=== PATIENT | male | born 2000 | race African-American/Black ===

== ENCOUNTER 2021-08-13 16:22 | Emergency (ER) | payer OTHER, SELFPAY ==
[2021-08-13 16:38] VITALS: BP 169/76; PULSE 56; RESP 16; TEMP 36.6; O2SAT 100
--- NOTE | 2021-08-13 20:53 | W.ED.NAVMDI ---
Documented by User: [email or web address] Lopez 08/13/21 21:13 HPI - Nausea/Vomiting/Diarrhea General: Chief complaint: Nausea/Vomiting/Diarrhea Stated complaint: Pt states they are coming in for [facility] Time Seen by Provider: 08/13/21 20:51 History of Present Illness: 20-year-old male patient comes in today for complaints of nausea and vomiting after the use of cannabis. Patient reports an episode of hyperemesis secondary to cannabinoid use in the past. Patient states he has avoided the use of cannabis since that episode but had used some today and started having symptoms similar to his previous episode. Patient denies any other chronic medical problems. Patient denies any routine medications. Associated nausea: Yes Associated symtoms: Reports nausea Review of Systems GI: Reports: nausea and vomiting Physical Exam Const: COMMON NORMALS: alert HENMT: COMMON NORMALS: atraumatic HEAD & SCALP: atraumatic THROAT: posterior oropharynx normal Resp: COMMON NORMALS: normal respiratory effort and clear to auscultation bilaterally AUSCULTATION: clear to auscultation bilaterally Cardio: COMMON NORMALS: regular rate and regular rhythm RATE: regular rate RHYTHM: regular rhythm GI: COMMON NORMALS: Soft to palpation and non-tender AUSCULTATION: Yes normoactive bowel sounds PALPATION: Yes Soft to palpation Extremity: COMMON NORMALS: normal to inspection Neuro: SENSORIUM/ORIENTATION: Yes alert Psych: COMMON NORMALS: cooperative Skin: COMMON NORMALS: no rashes or lesions noted GENERAL SKIN EXAM: no rashes or lesions noted Course Vital Signs: Vital signs: Vital Signs Temperature 97.9 F 08/13/21 16:38 Pulse Rate 56 L 08/13/21 16:38 Respiratory Rate 16 08/13/21 16:38 Blood Pressure 169/76 08/13/21 16:38 Pulse Oximetry 100 08/13/21 16:38 MDM - Nausea/Vomiting/Diarrhea Medical Decision Making Patient presents with nausea and one episode of emesis. Patient reports that he had used cannabis prior to the episode. Patient reports that he did have a previous episode of severe nausea and vomiting due to cannabis. On exam abdomen is soft nontender. Bowel sounds are present. Skin is warm and dry. Vital signs are normal. Patient appears well without any signs of serious illness or injury. Differential diagnosis includes but not limited to viral syndrome, cannabis hyperemesis syndrome, GERD. Patient was treated with 12-1/2 mg of Phenergan p.o. Patient be continue with medication 3 times a day as needed for nausea. Patient reported understanding and agreed to plan. Discharge Plan Discharge Patient Disposition: Home Clinical Impression: Cannabinoid hyperemesis syndrome Condition: Stable Prescriptions: New promethazine 12.5 mg tablet 12.5 mg PO TID PRN (Reason: nausea and vomiting) Qty: 7 0RF Rx Instructions: 3 doses during day; last dose no later than 4 hr before bedtime Discharge Orders: Discharge ED (Routine); Ordered 08/13/21 Ordered By: Washington Hull Discharge Diet: Usual diet Discharge Activity: Increase activity as tolerated Patient Instructions: Cannabis Abuse (ED) Activity Restrictions/Additional Instructions: Limit cannabis use. Drink plenty of water. Use medication as needed for nausea and vomiting. Follow-up with primary care for further instruction. Return to the ER for worsening symptoms or new concerns. Coding Level of Care Code ED Bow Maker Machine Tender for Chg Fwd Exam Comprehensive Medical Decision Making Low Complexity Time Spent (min) 20 Documented by User: Mike Snow DO 08/14/21 01:54 HPI - Nausea/Vomiting/Diarrhea General: Chief complaint: Nausea/Vomiting/Diarrhea Stated complaint: Pt states they are coming in for [facility] Time Seen by Provider: 08/13/21 20:51 Course Vital Signs: Vital signs: Vital Signs Temperature 97.9 F 08/13/21 16:38 Pulse Rate 56 L 08/13/21 16:38 Respiratory Rate 16 08/13/21 16:38 Blood Pressure 169/76 08/13/21 16:38 Pulse Oximetry 100 08/13/21 16:38 MDM - Nausea/Vomiting/Diarrhea Medical Decision Making Patient presents with nausea and one episode of emesis. Patient reports that he had used cannabis prior to the episode. Patient reports that he did have a previous episode of severe nausea and vomiting due to cannabis. On exam abdomen is soft nontender. Bowel sounds are present. Skin is warm and dry. Vital signs are normal. Patient appears well without any signs of serious illness or injury. Differential diagnosis includes but not limited to viral syndrome, cannabis hyperemesis syndrome, GERD. Patient was treated with 12-1/2 mg of Phenergan p.o. Patient be continue with medication 3 times a day as needed for nausea. Patient reported understanding and agreed to plan. This patient was originally seen by MALENA Shipman.? I agree with his history, evaluation, and treatment. Discharge Plan Discharge Patient Disposition: Home Clinical Impression: Cannabinoid hyperemesis syndrome Condition: Stable Prescriptions: New promethazine 12.5 mg tablet 12.5 mg PO TID PRN (Reason: nausea and vomiting) Qty: 7 0RF Rx Instructions: 3 doses during day; last dose no later than 4 hr before bedtime Discharge Orders: Discharge ED (Routine); Ordered 08/13/21 Ordered By: Washington Hull Discharge Diet: Usual diet Discharge Activity: Increase activity as tolerated Patient Instructions: Cannabis Abuse (ED) Activity Restrictions/Additional Instructions: Limit cannabis use. Drink plenty of water. Use medication as needed for nausea and vomiting. Follow-up with primary care for further instruction. Return to the ER for worsening symptoms or new concerns. Coding Level of Care Code ED Bow Maker Machine Tender for Jluisg Fwd Exam Comprehensive Medical Decision Making Low Complexity Time Spent (min) 20
[2021-08-13] MEDS: promethazine 25 mg Tablet 12.5 MG PO (21:14)
== END 2021-08-13 21:15 | disposition home or self-care (01) ==
PROVIDERS: Emergency Provider Nurse Practitioner Family
DX: R11.2 Nausea with vomiting, unspecified (principal); F12.90 Cannabis use, unspecified, uncomplicated
CPT/HCPCS: 99283; Q0169